=== PATIENT | male | born 1965 | race Caucasian/White ===

== ENCOUNTER 2016-10-13 17:04 | Inpatient (IN) | payer OTHER, MEDICARE ==
[~2016-10-13 17:04] MED LIST: ALAVERT10 MG PO; ALEVE220 MG PO; ALL DAY ALLERGY10 MG PO; AMOXICILLIN875 MG; ARTHX DS CAPSUL1 CAP PO; ASCORBIC ACID500 M2 PO; AUGMENTIN 875-11 TAB; CALCIUM 600 +1 EA12 PO; CALCIUM600 MG PO; CHANTIX1 MG; CRANBERRY500 M PO; CULTURELLE1 EAC1 PO; DAILY VITAMIN1 EAC3 PO; FIBER LAXATIVE PO; FISH OIL 1,0001 CA PO; FLAGYL500 M1 PO; GARLIC1000 MG PO; HIPREX1 GM PO; HYDROCHLOROTHIA25 MG PO; KLOR-CON 1010 ME1 PO; KLOR-CON M20 MEQ/TAB PO; LISINOPRIL40 M1 PO; MUCUS ER600 M1 PO; MULTI-VITAMIN1 TAB PO; MYRBETRIQ50 M1 PO; NASAL DECONGESTA5 MG PO; NORVASC10 MG PO; PERCOCET 5MG/AP1 TAB PO; POTASSIUM99 MG PO; PRILOSEC20 M1 PO; SENNA8.6 M1 PO; SUDAFED30 M1 PO; SUDOGEST60 MG/TAB PO; TRAMADOL HCL50 M2 PO; TRAMADOL HCL50 MG PO; VESICARE10 M1 PO; VIT B PO; VITAMIN C1000 MG PO; VITAMIN C500 M3 PO; VITAMIN D-32000 UNI4 PO; WELCHOL625 M1 PO
[2016-10-13] MEDS ORDERED: SUDAFED 12 HOU120 M1 PO (17:41)
[2016-10-13] MEDS ORDERED: OS-CAL 500+D31 EAC1 PO (17:50)
[2016-10-13] MEDS ORDERED: HYDROCHLOROTH12.5 M2 PO (17:50)
[2016-10-13] MEDS ORDERED: NORVASC5 M2 PO (17:50)
[2016-10-13] MEDS ORDERED: VITAMIN D31000 UNI3 PO (17:51)
[2016-10-13] MEDS ORDERED: PROBIOTIC1 EAC9 PO (17:51)
[2016-10-13] MEDS ORDERED: OMEPRAZOLE20 M3 PO (17:52)
[2016-10-13] MEDS ORDERED: NATURAL POTASSIUM PO (17:53)
[2016-10-13 20:35] LABS: URINE BILIRUBIN MODERATE (NEG); URINE BLOOD LARGE (NEG); URINE GLUCOSE (UA) NEGATIVE (NEG); URINE KETONE MODERATE (NEG); URINE LEUKOCYTE ESTERASE POSITIVE (NEG); URINE NITRITE NEGATIVE (NEG); URINE PROTEIN MODERATE (NEG); URINE SPECIFIC GRAVITY 1.015 (1.003-1.030)
[2016-10-13 20:46] LABS: URINE COLOR DARK YELLOW
[2016-10-13 20:47] LABS: URINE APPEARANCE CLOUDY
[2016-10-13 20:54] LABS: URINE BACTERIA 4+; URINE WBC FULL FIELD /[HPF] (0-5)
[2016-10-13 20:56] LABS: URINE RBC 20-30 /[HPF] (0-5)
[2016-10-14 06:41] LABS: BASO % 0.1 % (0-2); EOS % 0.3 % (0-7); EOSINOPHIL ABSOLUTE COUNT 0.1 tho/cmm (0.0-0.7); HGB-HEMOGLOBIN 12.9 gm/dl (13.5-17.0); IMMATURE GRANULOCYTES ABSOLUTE 0.32 tho/cmm (0-0.03); IMMATURE GRANULOCYTES PERCENT 1.5 % (0-0.3); LYMPH % 6.6 % (20-45); LYMPH ABSOLUTE COUNT 1.4 tho/cmm (0.8-4.5); MCV (MEAN CELL VOLUME) 84.1 fl (82.0-96.0); MEAN PLATELET VOLUME 8.7 cmc (9.4-12.4); MONO % 9.4 % (0-12); NEUTROPHIL ABSOLUTE COUNT 17.5 tho/cmm (1.6-8.0); NEUTROPHIL-AUTOMATED 17.5 tho/cmm (1.6-8.0); NEUTROPHILS % 82.1 % (40-80); PLATELET COUNT 359 tho/cmm (150-450); RED BLOOD COUNT 4.16 mil/cmm (4.40-5.70); RED CELL DISTRIBUTION WIDTH 12.6 % (12.4-16.4); WHITE BLOOD COUNT 21.3 tho/cmm (4.0-10.0)
[2016-10-14 06:42] LABS: INR 1.2 INR (0.9-1.1); PROTHROMBIN TIME 13.4 SECONDS (9.0-13.6)
[2016-10-14 06:56] LABS: ALB/GLOB RATIO 0.4 (0.8-2.0); ALBUMIN 1.9 g/dl (3.5-5.0); ALKALINE PHOSPHATASE 87 U/L (33-138); ALT/SGPT 21 U/L (12-78); ANION GAP 11 mmol/L (0-20); AST/SGOT 31 U/L (10-40); BILIRUBIN,TOTAL 1.4 mg/dl (0.0-1.5); BLOOD UREA NITROGEN 21 mg/dl (6-24); CALCIUM 7.6 mg/dl (8.5-10.5); CARBON DIOXIDE-VENOUS 26 mmol/L (22-32); CHLORIDE 89 mmol/l (96-110); GLUCOSE 101 mg/dL (70-110); POTASSIUM 3.3 mmol/L (3.7-5.1); SODIUM 123 mmol/L (135-145)
[2016-10-14 07:18] LABS: CREATININE 0.57 mg/dl (0.60-1.30); eGFR VALUE FOR BLACK >90 mL/Min
[2016-10-14 07:19] LABS: PREALBUMIN <3.0 mg/dl (20.0-40.0)
[2016-10-14 07:23] LABS: MCHC MEAN CORPUSCULAR HGB CONC 36.9 % (32.0-36.0)
[2016-10-15 03:06] LABS: BASO % 0.3 % (0-2); EOS % 0.3 % (0-7); EOSINOPHIL ABSOLUTE COUNT 0.1 tho/cmm (0.0-0.7); HCT-HEMATOCRIT 32.6 % (36.0-53.5); HGB-HEMOGLOBIN 11.7 gm/dl (13.5-17.0); IMMATURE GRANULOCYTES ABSOLUTE 0.63 tho/cmm (0-0.03); IMMATURE GRANULOCYTES PERCENT 4.2 % (0-0.3); LYMPH % 9.1 % (20-45); LYMPH ABSOLUTE COUNT 1.4 tho/cmm (0.8-4.5); MCH (MEAN CORPUSCULAR HGB) 30.7 pg (28.0-32.0); MCHC MEAN CORPUSCULAR HGB CONC 35.9 % (32.0-36.0); MCV (MEAN CELL VOLUME) 85.6 fl (82.0-96.0); MEAN PLATELET VOLUME 8.4 cmc (9.4-12.4); MONO % 10.9 % (0-12); MONOCYTE ABSOLUTE COUNT 1.6 tho/cmm (0.0-1.2); NEUTROPHIL ABSOLUTE COUNT 11.3 tho/cmm (1.6-8.0); NEUTROPHIL-AUTOMATED 11.3 tho/cmm (1.6-8.0); NEUTROPHILS % 75.2 % (40-80); PLATELET COUNT 384 tho/cmm (150-450); RED BLOOD COUNT 3.81 mil/cmm (4.40-5.70); RED CELL DISTRIBUTION WIDTH 12.5 % (12.4-16.4)
[2016-10-15 03:09] LABS: INR 1.2 INR (0.9-1.1); PROTHROMBIN TIME 13.4 SECONDS (9.0-13.6)
[2016-10-15 03:17] LABS: ANION GAP 12 mmol/L (0-20); BLOOD UREA NITROGEN 11 mg/dl (6-24); CALCIUM 7.4 mg/dl (8.5-10.5); CARBON DIOXIDE-VENOUS 24 mmol/L (22-32); CHLORIDE 99 mmol/l (96-110); CREATININE 0.44 mg/dl (0.60-1.30); GLUCOSE 145 mg/dL (70-110); POTASSIUM 3.6 mmol/L (3.7-5.1); SODIUM 131 mmol/L (135-145); eGFR VALUE FOR BLACK >90 mL/Min
[2016-10-15 20:56] LABS: URINE PRT/CR RATIO 0.52 Ratio (0.0-0.20); URINE TOTAL PROTEIN-RANDOM 11.5 mg/dl (<11.8)
[2016-10-16 05:50] LABS: HCT-HEMATOCRIT 33.7 % (36.0-53.5); HGB-HEMOGLOBIN 11.6 gm/dl (13.5-17.0); MCH (MEAN CORPUSCULAR HGB) 30.4 pg (28.0-32.0); MCHC MEAN CORPUSCULAR HGB CONC 34.4 % (32.0-36.0); MCV (MEAN CELL VOLUME) 88.2 fl (82.0-96.0); MEAN PLATELET VOLUME 8.4 cmc (9.4-12.4); NEUTROPHIL-AUTOMATED 9.1 tho/cmm (1.6-8.0); PLATELET COUNT 478 tho/cmm (150-450); RED BLOOD COUNT 3.82 mil/cmm (4.40-5.70); RED CELL DISTRIBUTION WIDTH 12.9 % (12.4-16.4); WHITE BLOOD COUNT 13.8 tho/cmm (4.0-10.0)
[2016-10-16 05:57] LABS: INR 1.1 INR (0.9-1.1)
[2016-10-16 06:05] LABS: BASO % 0.5 % (0-2); BASO ABSOLUTE COUNT 0.1 tho/cmm (0.0-0.2); EOS % 1.5 % (0-7); EOSINOPHIL ABSOLUTE COUNT 0.2 tho/cmm (0.0-0.7); IMMATURE GRANULOCYTES ABSOLUTE 0.98 tho/cmm (0-0.03); IMMATURE GRANULOCYTES PERCENT 7.1 % (0-0.3); LYMPH % 14.4 % (20-45); MONO % 10.3 % (0-12); MONOCYTE ABSOLUTE COUNT 1.4 tho/cmm (0.0-1.2); NEUTROPHIL ABSOLUTE COUNT 9.1 tho/cmm (1.6-8.0); NEUTROPHILS % 66.2 % (40-80)
[2016-10-16 06:13] LABS: ANION GAP 10 mmol/L (0-20); BLOOD UREA NITROGEN 6 mg/dl (6-24); CALCIUM 7.9 mg/dl (8.5-10.5); CARBON DIOXIDE-VENOUS 26 mmol/L (22-32); CHLORIDE 103 mmol/l (96-110); GLUCOSE 118 mg/dL (70-110); SODIUM 135 mmol/L (135-145); eGFR VALUE FOR BLACK >90 mL/Min
--- NOTE | 2016-10-16 20:14 | NUR ---
CONTACTED BY LAB THAT [facility] DOES NOT COVER ORGANISMS FROM WOUND CULTURE. DR SERRANO NOTIFIED, INSTRUCTED TO LEAVE [facility]OSYN ON THE EMAR AND HE WILL REVIEW CULTURES IN THE MORNING.
[2016-10-17 06:18] LABS: INR 1.2 INR (0.9-1.1); PROTHROMBIN TIME 13.5 SECONDS (9.0-13.6)
[2016-10-18 05:50] LABS: PLATELET COUNT 518 tho/cmm (150-450)
[2016-10-18 05:57] LABS: INR 1.2 INR (0.9-1.1); PROTHROMBIN TIME 13.8 SECONDS (9.0-13.6)
[2016-10-19 05:57] LABS: INR 1.2 INR (0.9-1.1); PROTHROMBIN TIME 13.9 SECONDS (9.0-13.6)
[2016-10-20] MEDS ORDERED: LORTAB 5-325 M1 EAC1 PO (11:05)
[2016-10-20] MEDS ORDERED: AUGMENTIN 875-1 EAC2 PO (11:05)
[2016-10-20] MEDS ORDERED: ACETAMINOPHEN325 M2 PO (11:29)
[2016-10-20] MEDS ORDERED: OS-CAL 500+D31 EAC1 PO (11:30)
[2017-02-12] MEDS ORDERED: CALCIUM 600 +1 EA21 PO (12:44)
[2017-02-14] MEDS ORDERED: PERCOCET 5-3251 EACH PO (11:31)
== END 2016-10-20 12:00 | DRG 573 ==
LOC: BURN 17:04 → ORW 10-16 13:33 → BURN 10-16 14:59
PROVIDERS: Family Medicine; Internal Medicine; Internal Medicine Nephrology; Surgery; ADMIT Hospitalist
PROC: 05H633Z Insertion of Infusion Device into Left Subclavian Vein, Percutaneous Approach (ICD-10-PCS; 2016-10-13)
PROC: 0HRKXK3 Replacement of Right Lower Leg Skin with Nonautologous Tissue Substitute, Full Thickness, External Approach (ICD-10-PCS; principal; 2016-10-16)
PROC: 0JBQ0ZZ Excision of Right Foot Subcutaneous Tissue and Fascia, Open Approach (ICD-10-PCS; 2016-10-16)
PROC: 0JBN0ZZ Excision of Right Lower Leg Subcutaneous Tissue and Fascia, Open Approach (ICD-10-PCS; 2016-10-16)
PROC: 0HRMXK3 Replacement of Right Foot Skin with Nonautologous Tissue Substitute, Full Thickness, External Approach (ICD-10-PCS; 2016-10-16)
PROC: 0HRKXK3 Replacement of Right Lower Leg Skin with Nonautologous Tissue Substitute, Full Thickness, External Approach (ICD-10-PCS; 2016-10-19)
PROC: 0JBQ0ZZ Excision of Right Foot Subcutaneous Tissue and Fascia, Open Approach (ICD-10-PCS; 2016-10-19)
PROC: 0JBN0ZZ Excision of Right Lower Leg Subcutaneous Tissue and Fascia, Open Approach (ICD-10-PCS; 2016-10-19)
PROC: 0HRMXK3 Replacement of Right Foot Skin with Nonautologous Tissue Substitute, Full Thickness, External Approach (ICD-10-PCS; 2016-10-19)
DX: L89.899 Pressure ulcer of other site, unspecified stage (principal); E43 Unspecified severe protein-calorie malnutrition; G82.20 Paraplegia, unspecified; K59.2 Neurogenic bowel, not elsewhere classified; E87.1 Hypo-osmolality and hyponatremia; E88.09 Other disorders of plasma-protein metabolism, not elsewhere classified; L03.115 Cellulitis of right lower limb; N39.0 Urinary tract infection, site not specified; T83.518A Infection and inflammatory reaction due to other urinary catheter, initial encounter; N31.9 Neuromuscular dysfunction of bladder, unspecified; E87.6 Hypokalemia; Z68.31 Body mass index [BMI] 31.0-31.9, adult; I10 Essential (primary) hypertension; Z89.432 Acquired absence of left foot; K21.9 Gastro-esophageal reflux disease without esophagitis; B95.61 Methicillin susceptible Staphylococcus aureus infection as the cause of diseases classified elsewhere; B96.20 Unspecified Escherichia coli [E. coli] as the cause of diseases classified elsewhere; Z87.891 Personal history of nicotine dependence; L91.0 Hypertrophic scar; M19.90 Unspecified osteoarthritis, unspecified site; B95.4 Other streptococcus as the cause of diseases classified elsewhere; Z99.3 Dependence on wheelchair; R80.9 Proteinuria, unspecified
CPT/HCPCS: A9577; C1751; G0009; J0171; J0295; J1580; J1650; J2543; J3370; J3475; J7030; Q4100; Q4104; Q4154

== ENCOUNTER 2016-11-09 07:34 | Day surgery (SDC) | payer OTHER, MEDICARE ==
[~2016-11-09 07:34] MED LIST changes: +ACETAMINOPHEN325 M2 PO; +AUGMENTIN 875-1 EAC2 PO; +HYDROCHLOROTH12.5 M2 PO; +LORTAB 5-325 M1 EAC1 PO; +NATURAL POTASSIUM PO; +NORVASC5 M2 PO; +OMEPRAZOLE20 M3 PO; +OS-CAL 500+D31 EAC1 PO; +PROBIOTIC1 EAC9 PO; +SUDAFED 12 HOU120 M1 PO; +VITAMIN D31000 UNI3 PO
[2016-11-09 08:54] LABS: BASO % 0.2 % (0-2); EOS % 3.5 % (0-7); EOSINOPHIL ABSOLUTE COUNT 0.4 tho/cmm (0.0-0.7); HCT-HEMATOCRIT 31.5 % (36.0-53.5); HGB-HEMOGLOBIN 10.6 gm/dl (13.5-17.0); IMMATURE GRANULOCYTES ABSOLUTE 0.05 tho/cmm (0-0.03); IMMATURE GRANULOCYTES PERCENT 0.5 % (0-0.3); LYMPH % 16.4 % (20-45); LYMPH ABSOLUTE COUNT 1.8 tho/cmm (0.8-4.5); MCH (MEAN CORPUSCULAR HGB) 29.6 pg (28.0-32.0); MCHC MEAN CORPUSCULAR HGB CONC 33.7 % (32.0-36.0); MEAN PLATELET VOLUME 8.4 cmc (9.4-12.4); MONO % 6.7 % (0-12); MONOCYTE ABSOLUTE COUNT 0.7 tho/cmm (0.0-1.2); NEUTROPHIL ABSOLUTE COUNT 7.8 tho/cmm (1.6-8.0); NEUTROPHIL-AUTOMATED 7.8 tho/cmm (1.6-8.0); NEUTROPHILS % 72.7 % (40-80); PLATELET COUNT 458 tho/cmm (150-450); RED BLOOD COUNT 3.58 mil/cmm (4.40-5.70); RED CELL DISTRIBUTION WIDTH 13.5 % (12.4-16.4); WHITE BLOOD COUNT 10.8 tho/cmm (4.0-10.0)
[2017-02-12] MEDS ORDERED: CALCIUM 600 +1 EA21 PO (12:44)
[2017-02-14] MEDS ORDERED: PERCOCET 5-3251 EACH PO (11:31)
== END 2016-11-10 12:56 ==
LOC: SRG 07:34 → SHSB 07:45 → ORW 09:09 → BURN 11:01
PROVIDERS: Anesthesiology
PROC: 0HRMX74 Replacement of Right Foot Skin with Autologous Tissue Substitute, Partial Thickness, External Approach (ICD-10-PCS; principal; 2016-11-09)
DX: L91.0 Hypertrophic scar (principal); L03.115 Cellulitis of right lower limb; B95.7 Other staphylococcus as the cause of diseases classified elsewhere; B95.4 Other streptococcus as the cause of diseases classified elsewhere; I10 Essential (primary) hypertension; F41.9 Anxiety disorder, unspecified; F32.9 Major depressive disorder, single episode, unspecified; K21.9 Gastro-esophageal reflux disease without esophagitis; G82.20 Paraplegia, unspecified; N31.9 Neuromuscular dysfunction of bladder, unspecified; M19.90 Unspecified osteoarthritis, unspecified site; K59.00 Constipation, unspecified; Z79.899 Other long term (current) drug therapy; Z87.891 Personal history of nicotine dependence; Z87.440 Personal history of urinary (tract) infections; Z89.512 Acquired absence of left leg below knee; Z98.890 Other specified postprocedural states
CPT/HCPCS: J0171; J0690; J1580; J3370